=== PATIENT | female | born 1985 | race Caucasian/White ===

== ENCOUNTER 2020-10-11 21:41 | Emergency (ER) | payer OTHER ==
[2020-10-11 21:49] VITALS: BMI 29.9
[2020-10-11] MEDS ORDERED: BACITRACIN 15 GM TUBE TOPICAL OINTMENT TP ONE (21:55)
[2020-10-11] MEDS ORDERED: DIPHTH,PERTUSS(ACELL),TET 0.5 ML DISP.SYRIN IM ONE ×2 (21:55→22:02)
[2020-10-11] MEDS ORDERED: BACITRACIN 15 GM TUBE TOPICAL OINTMENT ONE (22:02)
[2020-10-12 02:47] VITALS: BP 110/71; PULSE 71; TEMP 98.5
== END 2020-10-12 03:09 | disposition home or self-care (01) ==
LOC: JER 21:41
PROC: 3E0234Z Introduction of Serum, Toxoid and Vaccine into Muscle, Percutaneous Approach (ICD-10-PCS; principal; 2020-10-11)
DX: O26.899 Other specified pregnancy related conditions, unspecified trimester (principal); R10.9 Unspecified abdominal pain; Z3A.22 22 weeks gestation of pregnancy
CPT/HCPCS: 76801-TC; 76817-TC; 90715; 99284-25